=== PATIENT | male | born 1990 | race Caucasian/White ===

== ENCOUNTER 2017-02-12 21:31 | Emergency (ER) | payer OTHER ==
[~2017-02-12] VITALS: Ht 170.2 cm; Wt 87.1 kg
[2017-02-12 21:44] VITALS: BP 134/88
--- NOTE | 2017-02-12 23:25 | NUR ---
PT TAKEN TO BED 8
--- NOTE | 2017-02-12 23:30 | NUR ---
PATIENT IS A 26 Y/O MALE WHO PRESENTS TO THE ED C/O SORE THROAT. PT STATES, "I WAS TAKING ACYCLOVIR AND I HAVE WHITE SPOTS IN THE BACK OF MY THROAT THAT HURT." PATIENT WAS REFERRED FROM URGENT CARE. PATIENT REPORTS 7/10 ACHING PAIN ON THE THROAT THAT RADIATES TO THE EYE. NOTED MILD SWELLING ON THE LEFT SIDE. PT DENIES SOB, CHEST PAIN, N/V/D. PT AAOX4, RR EVEN/UNLABORED. PT REPOSITIONED FOR COMFORT, BED IN LOWEST POSITION. ER MD DR. CALABRESE NOTIFIED. WILL CONTINUE TO MONITOR.
--- NOTE | 2017-02-12 23:40 | NUR ---
Dr. Strickland evaluating patient at bedside.
[2017-02-13 00:08] VITALS: BP 127/83
--- NOTE | 2017-02-13 00:08 | NUR ---
Patient discharged with v/s stable. Written and verbal after care instructions given and explained. Patient alert, oriented and verbalized understanding of instructions. Ambulatory with steady gait. All questions addressed prior to discharge. ID band removed. Patient advised to follow up with PMD. Rx of AMOXICILLIN 500MG given. Patient educated on indication of medication including possible reaction and side effects. Opportunity to ask questions provided and answered.
== END 2017-02-13 00:08 | disposition home or self-care (01) ==
LOC: MED 21:31
DX: J03.90 Acute tonsillitis, unspecified (principal); R03.0 Elevated blood-pressure reading, without diagnosis of hypertension
CPT/HCPCS: 87081; 99283

== ENCOUNTER 2017-05-28 19:27 | Emergency (ER) | payer OTHER ==
[~2017-05-28] VITALS: Ht 170.2 cm; Wt 83.6 kg
[2017-05-28 19:37] VITALS: BP 130/83
--- NOTE | 2017-05-28 20:16 | NUR ---
TO ER OF3
--- NOTE | 2017-05-28 20:19 | NUR ---
27 Y/O M W/C/O SORETHROAT/FEVER/COUGH X 1 WK. MED HX HIV. PER PT IBUPROFEN 800MG TAKEN 1 HR AGO AT HOME FOR PAIN. NO S/S OF DISTRESS NOTED AT THE MOMENT.
--- NOTE | 2017-05-28 20:20 | NUR ---
FLU / AND STREP SWAB COLLECTED AND SENT IT TO [facility].
--- NOTE | 2017-05-28 20:23 | NUR ---
TEA CAMPOS AT BEDSIDE EVALUATING PT.
[2017-05-28 21:59] VITALS: BP 123/86
== END 2017-05-28 21:59 | disposition home or self-care (01) ==
LOC: MED 19:27
DX: J02.9 Acute pharyngitis, unspecified (principal)
CPT/HCPCS: 36415; 86308; 87081; 87804; 99284